=== PATIENT | male | born 1995 | race Caucasian/White ===

== ENCOUNTER 2018-08-16 19:05 | Emergency (ER) | payer OTHER ==
[~2018-08-16] VITALS: Ht 170.2 cm; Wt 90.7 kg
[2018-08-16] MEDS ORDERED: FLEXERIL PO (20:51)
[2018-08-16 21:12] VITALS: BP 173/101
== END 2018-08-16 21:12 | disposition home or self-care (01) ==
LOC: M.ERS 19:05
DX: S16.1XXA Strain of muscle, fascia and tendon at neck level, initial encounter (principal); V89.2XXA Person injured in unspecified motor-vehicle accident, traffic, initial encounter; Y93.89 Activity, other specified; Y92.89 Other specified places as the place of occurrence of the external cause; Y99.8 Other external cause status